=== PATIENT | male | born 1935 | race African-American/Black ===

== ENCOUNTER 2020-02-12 21:19 | Inpatient (IN) | payer OTHER ==
[~2020-02-12] VITALS: Ht 170.2 cm; Wt 59.6 kg
--- NOTE | ~2020-02-12 | EEG ---
[facility] Jaison [place] [address] ELECTROENCEPHALOGRAM Name: MANJIT SMITH Room #: 206-P [facility] IN M.R.#: [id number] Admission: 02/12/20 Attend Phys: Solo Diaz MD Discharge: Date of : 37 Report #: [id number] THIS REPORT FOR: //name// CC: FAM unknown Solo Diaz DATE OF SERVICE: 02/19/2020 REFERRING PHYSICIAN: Dr. Diaz. This patient is being evaluated for possibility of stroke. The patient's background activity is about 7 Hz and 30 microvolt. It is a poorly formed background activity. The patient went to sleep that is associated with bilateral slowing and vertex sharp waves. Photic stimulation is unremarkable. Throughout the record, no active epileptiform activity was noticed. IMPRESSION: This patient's EEG is intermixed with some theta range slowing. However, no active epileptiform activity was noticed during this record. Thank you very much for this referral. By: 26 31 Franki Hui MD /nt
--- NOTE | ~2020-02-12 | HC ---
[facility] [place] [address] CONSULTATION Name: MANJIT SMITH Room #: 206-P ADM IN M.R.#: [id number] Admission: 02/12/20 Attend Phys: Solo Diaz MD Discharge: Date of : 37 Report #: [id number] THIS REPORT FOR: cc: FAM - Family physician unknown FAM - Family physician unknown Franki Hui MD ~ DATE OF SERVICE: 02/19/2020 HISTORY OF PRESENT ILLNESS: This is an 84-year-old male patient who is unable to provide any history at all. I talked to the nurses looking after this patient and I talked to the patient's daughter. I will give a call to Dr. Jarrett and will talk to her. The patient lives by himself. 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 Daughter does not know which eye. He has very minimum vision in the other eye. That is his baseline. He needs the family health to do day-to-day activities. He cannot cook for himself. Family goes and help him or he gets Meals on the Wheels. So, it looks like he has a pretty significant dementia in the baseline. He also has significant visual disturbances in the baseline, but he was able to talk, from the last few days, he does not make any sense. This is according to the family. He did not follow any commands for me. REVIEW OF SYSTEMS: Positive for gastric ulcer. His hemoglobin is only 6.9. His platelet count is only 99. Records indicate that he does have a GI problem. He also has respiratory difficulty. He has a history of atrial fibrillation. He has a history of electrolyte imbalances as well as renal problem. Records indicate that he had elevated transaminase. A 14-point review of system was carried out and this was his relevant 14-point review of systems. Apparently, he did not have a stroke in the past. PAST MEDICAL HISTORY: Positive for dementia. FAMILY HISTORY: Negative for early age stroke. SOCIAL HISTORY: Has been described above. PHYSICAL EXAMINATION: Indicates that he wakes up, he makes some sounds. He does not make any sense. I cannot understand a single word he says. Cranial nerve examination 2-12 was attempted. It is very difficult. He does have a visual deficit, but according to the daughter that is his baseline. It looks like he can move all 4 extremities, but he does not cooperate with the position sense. He keeps his arm in very unusual position. I could not reveal sensory or reflex. There is no meningeal sign. There is no carotid bruit in this patient. His last CHS was 5.2. Blood pressure is 116/57, pulse is 60, [facility] [address] [place] [address] CONSULTATION Name: MANJIT SMITH Room #: 206-P [facility] IN M.R.#: [id number] Admission: 02/12/20 Attend Phys: Solo Diaz MD Discharge: Date of : 37 Report #: [id number] temperature is 98.4. IMPRESSION: I discussed with the patient's daughter. She says he does not drink or smoke, but some of the history is conflicting, so I will give him a little thiamine. I need to do an MRI to make sure there is no vascular event. I will also get an EEG done. He does have visual disturbances, but looks like that is his baseline, and for that, I will check a sed rate, but I will suggest Ophthalmology consult. I do not know how to arrange that because there is no medicaid biller who comes here. All of it was discussed with the patient who does not understand things as well as the family. More than 15 minutes of time was spent taking care of this patient today and majority of time was spent counseling and coordinating. By: 1230 21 Franki Hui MD /nt
--- NOTE | ~2020-02-12 | EMS ---
[address] [address] EMS Patient Care Report Name: MANJIT SMITH Room #: 209-P ADM IN M.R.#: [id number] Admission: 02/12/20 Attend Phys: Bernice Baker Discharge: Date of : 37 Report #: [id number] THIS REPORT FOR: //name// Report Transmitted: 02/13/2020 05:51 EMS Care Summary [place], [place]/[facility] Incident [id number] @ 02/12/2020 20:32 Incident Location [address] [place] [address] Patient MANJIT SMITH Male, 84 Years 1935 Patient Address Patient History Hypertension (HTN), Patient Allergies No known allergies, Patient Medications Lisinopril, Carvedilol, Chief Complaint ABD PAIN Disposition Transported No Lights/[place] Dispatch Reason Abdominal Pain/Problems Transported To [facility] Narrative PT FOUND IN HOME STANDING AND AMBULATING WITHOUT DISTRESS. PT IS AAOX4 GCS 15 AND INITIALLY COMPLAINING OF ABDOMINAL PAIN. PT HAS HISTORY OF DEMENTIA AND HYPERTENSION. PT FIANCE STATES THAT SHE WANTS HIM TO GO TO THE HOSPITAL BUT PT DOES NOT WANT TO GO. PT IS CONSENTING TO TREATMENT AT THIS POINT. PT SITS IN CHAIR FOR ASSESSMENT. VITALS REVEAL MILD HYPERTENSION AND SINUS TACHYCARDIA VIA [address] [address] EMS Patient Care Report Name: MANJIT SMITH Room #: 209-P ADM IN M.R.#: [id number] Admission: 02/12/20 Attend Phys: Bernice Baker Discharge: Date of : 37 Report #: [id number] 12 LEAD. PT HAS NO COMPLAINTS OF NAUSEA, SOA, HEADACHE, DIZZINESS, OR LIGHTHEADEDNESS. PT STATES THAT HE NO LONGER HAS ABDOMINAL PAIN AND IS NOW CONSENTING TO TRANSPORT WITH [facility]. PT WALKS SELF TO STRETCHER AND IS LOADED TO AMBULANCE WITHOUT INCIDENT. TRANSPORT INITIATED. PT REMAINS CALM AND COLLECTED ENROUTE TO HOSPITAL. PT VITALS AND MENTAL STATUS CONTINUOUSLY MONITORED EN ROUTE TO HOSPITAL WITH NO ABNORMALITIES. VAGAL MANEUCER ATTEMPTED WITHOUT SUCCESS. ARRIVAL AT HOSPITAL. PT IS MOVED FROM AMBULANCE AND INTO HOSPITAL ROOM AND ONTO BED WITHOUT INCIDENT. PT REPORT AND CARE SUCCESSFULLY TRANSFERRED TO [facility]. Initial Vitals @21:05P: 150,R: 18,BP: 137/94,Pain: 0/10,GCS: 15,SpO2: 94,Revised Trauma: 12,MA Suspected: false @20:53P: 130,R: 18,BP: 143/94,Pain: 0/10,GCS: 15,Glucose: 109,SpO2: 94,Revised Trauma: 12,MA Suspected: false Assessments @20:53MENTAL:Other,Person Oriented,Place Oriented,Time Oriented,Event Oriented,SKIN:HEENT:Head/Face: No Abnormalities,Neck/Airway: No Abnormalities,LUNG SOUNDS:General: No Abnormalities,Left Upper: No Abnormalities,Right Upper: No Abnormalities,Left Lower: No Abnormalities,Right Lower: No Abnormalities,ABDOMEN:General: No Abnormalities,Left Upper: No Abnormalities,Right Upper: No Abnormalities,Left Lower: No Abnormalities,Right Lower: No Abnormalities,PELVIS//GI:No Abnormalities,EXTREMITIES:Capillary Refill: Right Upper: < 2 Sec,Left Arm: No Abnormalities,Right Arm: No Abnormalities,Left Leg: No Abnormalities,Right Leg: No Abnormalities,PULSE:Radial: 2+ Normal,NEURO:No Abnormalities, Impression Cardiac arrhythmia/dysrhythmia Procedures @20:59StretcherResponse: Unchanged@20:52ALS AssessmentResponse: UnchangedSucceeded@20:5612-Lead ECGResponse: UnchangedSucceeded@21:05Normal Saline (.9% NaCl) 10cc (18 ga) Site: Antecubital-RightResponse: UnchangedSucceeded@21:09Response: UnchangedFailed Timeline 20:27,Call Received 20:27,Dispatch Notified 20:32,Dispatched 20:32,En Route 20:50,On Scene 20:52,At Patient 20:52,ALS Assessment,Response: UnchangedSucceeded, 20:53,BP: 143/94 M,PULSE: 130,RR: 18 R,SPO2: 94 Ox,ETCO2: ,B,PAIN: [facility] [address] [place] [address] EMS Patient Care Report Name: MANJIT SMITH Room #: 209-P ADM IN M.R.#: [id number] Admission: 02/12/20 Attend Phys: Bernice Baker Discharge: Date of : 37 Report #: [id number],GCS: 15, 20:56,12-Lead ECG,Response: UnchangedSucceeded, 20:59,Stretcher,Response: Unchanged 21:05,Normal Saline (.9% NaCl) 10cc 18 ga Site: Antecubital-Right,Response: UnchangedSucceeded, 21:05,BP: 137/94 M,PULSE: 150,RR: 18 R,SPO2: 94 Ox,ETCO2: ,BG: ,PAIN: 0,GCS: 15, 21:08,Depart Scene 21:09,Response: UnchangedFailed, 21:17,At Destination 21:32,Call Closed Disclaimer v1.1 Copyright 2020 [employer] This EMS Care Summary contains data elements from the applicable legal record (which may be displayed differently). It is designed to provide pertinent information for the following purposes: continuity of care, clinical quality, and state data reporting. The complete legal record is available to ED staff and administrators of the receiving hospital in [employer] Patient Tracker. All data is provided "as is."
[2020-02-12 21:27] VITALS: BP 117/89
[2020-02-12 21:57] LABS: ABSOLUTE NEUTROPHILS 2.7 thou/uL (1.4-8.2); BASOPHILS 0.5 % (0.0-2.0); HEMATOCRIT 41.4 % (42.0-52.0); HEMOGLOBIN 13.8 gm/dL (14.0-18.0); LYMPHOCYTES 39.2 % (24.0-44.0); MCH 27.5 pg (26.0-34.0); MCHC 33.3 g/dL (28.0-37.0); MCV 82.6 fL (80.0-100.0); MONOCYTES 10.9 % (1.0-8.0); PLATELET COUNT 155 thou/uL (150-400); POLYS 48.4 % (36.0-66.0); RBC 5.02 mil/uL (4.50-6.00); RDW 15.7 % (10.5-14.5); WBC 5.5 thou/uL (4.0-11.0)
[2020-02-12 22:25] LABS: CALCIUM 8.9 mg/dL (8.5-10.1); CREATININE 1.6 mg/dL (0.7-1.3); POTASSIUM 4.2 mmol/L (3.5-5.1)
[2020-02-12 22:35] LABS: ALBUMIN 3.3 g/dL (3.4-5.0); TOTAL BILIRUBIN 0.7 mg/dL (0.2-1.0); TOTAL PROTEIN 6.4 g/dL (6.4-8.2); TROPONIN-I 0.1 ng/mL (<0.06)
[2020-02-13] VITALS (7 sets, daily range): BP systolic 100–134; BP diastolic 60–82
--- NOTE | 2020-02-13 02:11 | NUR ---
HANDOFF REPORT SEND TO CCU
[2020-02-13 02:19] LABS: BE(vivo) -10.2 mmol/L (-2 to +3); HCO3 16.7 mmol/L (22.0-26.0); PCO2 40.4 mmHg (35.0-45.0); PO2 83.5 mmHg (80.0-100.0); sO2 94.5 % (92.0-98.0)
[2020-02-13 02:20] LABS: pH 7.235 (7.360-7.450)
[2020-02-13 04:17] LABS: CALCIUM 8.8 mg/dL (8.5-10.1); CREATININE 1.9 mg/dL (0.7-1.3)
[2020-02-13 04:22] LABS: POTASSIUM 5.3 mmol/L (3.5-5.1)
--- NOTE | 2020-02-13 05:06 | NUR ---
pt admitted to room 209, pt is awake, alert and oriented to person and place, afib on the monitor, hr in the 50s, bp stable, assessments as charted, limited due to pts dementia, lasix given as ordered, pt off cardizem due to bradycardia, pt is tachypnic, pt put on bipap, attempted to but the johnson catheter but unsuccessful, will continue to monitor
--- NOTE | 2020-02-13 09:40 | EKG ---
[facility] [place] [address] ELECTROCARDIOGRAM REPORT Name: MANJIT SMITH Room #: 209-P ADM IN M.R.#: [id number] Admission: 02/12/20 Attend Phys: Bernice Baker Discharge: Date of : 37 Report #: [id number] THIS REPORT FOR: cc: FAM - Family physician unknown FAM - Family physician unknown Colton Patricia MD ~ THIS REPORT FOR: //name// [facility] ED Test Date: 2020-02-12 Test Time: 21:38:56 Pat Name: MANJIT SMITH Department: Room: [facility] Gender: M Asp Web Developer: janna : 1935 Requested By: Fly Rebolledo Order Number: [id number] MD: Colton Patricia Measurements Intervals [place] Rate: 150 P: 129 [place]: 44 QRS: -37 QRSD: 110 T: 146 QT: 326 QTc: 515 Interpretive Statements Supraventricular tachycardia LVH with secondary repolarization abnormality No previous ECG available for comparison Electronically Signed On 02-13-2020 9:39:53 CDT by Colton Patricia [email or web address] <ELECTRONICALLY SIGNED> By: [place] [id number] [id number] 37 Colton Patricia MD /JON
--- NOTE | 2020-02-13 09:42 | EKG ---
[facility] [place] [address] ELECTROCARDIOGRAM REPORT Name: MANJIT SMITH Room #: 209-P ADM IN M.R.#: [id number] Admission: 02/12/20 Attend Phys: Bernice Baker Discharge: Date of : 37 Report #: [id number] THIS REPORT FOR: cc: FAM - Family physician unknown FAM - Family physician unknown Colton Patricia MD ~ THIS REPORT FOR: //name// [facility] Test Date: 2020-02-13 Test Time: 07:56:56 Pat Name: MANJIT SMITH Department: Room: [facility] Gender: M Search Strategist: Adrian HENRIQUEZ : 1935 Requested By: Sarah Rodriguez Order Number: [id number] MD: Colton Patricia Measurements Intervals [place] Rate: 57 P: AR: QRS: -32 QRSD: 118 T: 154 QT: 489 QTc: 477 Interpretive Statements Junctional rhythm Nonspecific intraventricular conduction delay Inferior infarct, old Abnrm T, consider ischemia, anterolateral lds Compared to ECG 02/12/2020 21:38:56 Electronically Signed On 02-13-2020 9:42:36 CDT by Colton Patricia [email or web address] <ELECTRONICALLY SIGNED> By: Colton Patricia MD 02/13/20 0942 [id number] Colton Patricia MD /EPI
--- NOTE | 2020-02-13 09:42 | EKG ---
[facility] [address] [place] [address] ELECTROCARDIOGRAM REPORT Name: MANJIT SMITH Room #: 209-P ADM IN M.R.#: [id number] Admission: 02/12/20 Attend Phys: Bernice Baker Discharge: Date of : 37 Report #: [id number] THIS REPORT FOR: cc: FAM - Family physician unknown FAM - Family physician unknown Colton Patricia MD ~ THIS REPORT FOR: //name// [facility] ED Test Date: 2020-02-12 Test Time: 23:59:24 Pat Name: MANJIT SMITH Department: Room: [facility] Gender: M Geometry Teacher: dg : 1935 Requested By: Fly Rebolledo Order Number: [id number] MD: Colton Patricia Measurements Intervals [place] Rate: 75 P: 0 NV: 67 QRS: -31 QRSD: 112 T: 150 QT: 427 QTc: 477 Interpretive Statements Possible underlying atrial fibrillation. lvh SUPRAVENTRICULAR TACHYCARDIA terminated Electronically Signed On 02-13-2020 9:41:49 CDT by Colton Patricia [email or web address] <ELECTRONICALLY SIGNED> By: Colton Patricia MD 02/13/20 0941 58 58 Colton Patricia MD /JON
[2020-02-13 11:27] LABS: INR 1.3; PROTIME 13.5 Seconds (9.3-11.4)
--- NOTE | 2020-02-13 11:29 | 2DMMODE ---
[facility] [address] [place] [address] 2 D/M-MODE ECHOCARDIOGRAM Name: MANJIT SMITH Room #: 209-P ADM IN M.R.#: [id number] Admission: 02/12/20 Attend Phys: Bernice Baker Discharge: Date of : 37 Report #: [id number] THIS REPORT FOR: cc: FAM - Family physician unknown FAM - Family physician unknown Colton Patricia MD ~ APPROVED REPORT Study performed: 02/13/2020 08:27:46 EXAM: Comprehensive 2D, Doppler, and color-flow Echocardiogram Patient Location: Bedside Room #: 209 Status: on-call BSA: 1.82 HR: 55 bpm BP: 144/64 mmHg Rhythm: Atrial Fibrillation Other Information Study Quality: Adequate Technically limited study due to uncooperative patient/dementia and unable to position patient. Indications Afib with RVR, elevated BNP 2D Dimensions RVDd: 33.67 mm IVSd: 13.86 (7-11mm) LVOT Diam: 19.86 (18-24mm) LVDd: 46.28 mm PWd: 14.08 (7-11mm) Ascending Ao: 31.19 (22-36mm) LVDs: 42.07 (25-40mm) Aortic Root: 32.66 mm IVC: 22.00 mm Volumes Left Atrial Volume (Systole) Single Plane 4CH: 82.67 mL Single Plane 2CH: 70.56 mL LA ESV Index: 40.00 mL/m2 Aortic Valve AoV Peak Dami.: 0.85 m/s AO Peak Gr.: 2.91 mmHg LVOT Max P.36 mmHg LVOT Max V: 0.58 m/s [facility] [address] [place] [address] 2 D/M-MODE ECHOCARDIOGRAM Name: MANJIT SMITH Room #: 209-P [facility] IN M.R.#: [id number] Admission: 02/12/20 Attend Phys: Bernice Fox Jun Discharge: Date of : 37 Report #: [id number] NIRMALA Vmax: 2.12 cm2 AI Vmax: 2.83 m/s AI [place]: 1.21 m/s2 AI PHT: 680.04 ms Mitral Valve MV Decel. Time: 240.16 ms MV E Max Dami.: 0.84 m/s Pulmonary Valve PV Peak Dami.: 0.47 m/s PV Peak Gr.: 0.89 mmHg Tricuspid Valve TR Peak Dami.: 3.34 m/s TR Peak Gr.: 44.52 mmHg Left Ventricle The left ventricle is normal size. Regional wall motion abnormalities are noted in the lateral and anterolateral almazan. Moderate concentric left ventricular hypertrophy. Left ventricular systolic function is moderately decreased. LVEF is 35-40%. This study is not technically sufficient to allow evaluation of the LV diastolic function due to atrial fibrillation. Right Ventricle The right ventricle is normal size. Right ventricle is moderately hypokinetic. Atria Left atrium is mildly to moderately dilated. Right atrium is mildly dilated. Aortic Valve The aortic valve is not well visualized. Mild aortic regurgitation. There is no aortic valvular stenosis. Mitral Valve The mitral valve is normal in structure. Severe mitral regurgitation. No evidence of mitral valve stenosis. Tricuspid Valve The tricuspid valve is normal in structure. Severe tricuspid regurgitation. PAP is estimated at 55-60 mmHg. Pulmonic Valve The pulmonary valve is normal in structure. There is no pulmonic [facility] [place] [address] 2 D/M-MODE ECHOCARDIOGRAM Name: LUISMANJIT Room #: 209-P ADM IN M.R.#: [id number] Admission: 02/12/20 Attend Phys: Bernice Wagner Discharge: Date of : 37 Report #: [id number] valvular regurgitation. Great Vessels The aortic root is normal in size. The IVC is mildly dilated. Unable to assess inspiratory collapse. Pericardium There is no pericardial effusion. <Conclusion> The left ventricle is normal size. LVEF is 35-40%. Regional wall motion abnormalities are noted in the lateral and anterolateral almazan. The right ventricle is normal size. Right ventricle is moderately hypokinetic. Mild aortic regurgitation. There is no aortic valvular stenosis. Severe mitral regurgitation. No evidence of mitral valve stenosis. The tricuspid valve is normal in structure. Severe tricuspid regurgitation. PAP is estimated at 55-60 mmHg. The IVC is mildly dilated. Unable to assess inspiratory collapse. There is no pericardial effusion. <ELECTRONICALLY SIGNED> By: Colton Patricia MD 02/13/209 28 28 Colton Patricia MD /INF
--- NOTE | 2020-02-13 15:01 | NUR ---
MOVED FROM 209 TO 216 TO BETTER MONITOR BIPAP. MULTIPLE CALLS FROM FAMILY. POA IS ADULT DTR MIGUEL ÁNGEL CEVALLOS, NAE [phone]. JUNCTIONAL RHYTHM PER TELE. HE MOSTLY SLEEPS BUT WAKES READILY TO REPOND TO QUESTIONS. COVID TEST PERFORMED. FALL PRECAUTIONS IN PLACE, CLOSE TO NURSES' STATION. TROPONINS NOTED. WILL CONTINUE TO FOLLOW CLOSELY.
[2020-02-13 23:19] LABS: CALCIUM 8.4 mg/dL (8.5-10.1); CREATININE 2.8 mg/dL (0.7-1.3); POTASSIUM 4.7 mmol/L (3.5-5.1)
[2020-02-14] VITALS (51 sets, daily range): BP systolic 97–126; BP diastolic 44–70
[2020-02-14 05:17] LABS: BE(vivo) -2.3 mmol/L (-2 to +3); PCO2 30.6 mmHg (35.0-45.0); PO2 132.4 mmHg (80.0-100.0); pH 7.454 (7.360-7.450); sO2 98.8 % (92.0-98.0)
[2020-02-14 05:59] LABS: ABSOLUTE NEUTROPHILS 8.6 thou/uL (1.4-8.2); BASOPHILS 0.2 % (0.0-2.0); LYMPHOCYTES 12.1 % (24.0-44.0); MCH 27.8 pg (26.0-34.0); MCHC 33.8 g/dL (28.0-37.0); MCV 82.3 fL (80.0-100.0); PLATELET COUNT 90 thou/uL (150-400); POLYS 81.7 % (36.0-66.0); RBC 3.28 mil/uL (4.50-6.00); RDW 15.8 % (10.5-14.5); WBC 10.6 thou/uL (4.0-11.0)
[2020-02-14 06:06] LABS: HEMOGLOBIN 9.1 gm/dL (14.0-18.0)
--- NOTE | 2020-02-14 06:07 | NUR ---
CALL DR CRYSTAL CHAVES ABOUT D-DIMER GREATER THAN 20. NO ORDERS GIVEN. HEMOGLOBIN 9.1.
[2020-02-14 06:31] LABS: ALBUMIN 2.2 g/dL (3.4-5.0); CALCIUM 7.7 mg/dL (8.5-10.1); CREATININE 2.7 mg/dL (0.7-1.3); POTASSIUM 5.3 mmol/L (3.5-5.1); TOTAL PROTEIN 4.5 g/dL (6.4-8.2)
--- NOTE | 2020-02-14 07:06 | NUR ---
PATIENT UP TO [facility] AND HAD A LARGE BRIGHT BLOODY STOOL. DR CALLED AT 0500 ABOUT HIS HEMOGLOBIN, NO NEW ORDERS.
--- NOTE | 2020-02-14 07:07 | NUR ---
DR Pablo CHAVES CALLED AT 0600 ABOUT HEMOGLOBIN RESULTS NO NEW ORDERS.
[2020-02-14 08:04] LABS: HEMATOCRIT 25.3 % (42.0-52.0); HEMOGLOBIN 8.4 gm/dL (14.0-18.0)
[2020-02-14 09:50] LABS: HEMATOCRIT 22.5 % (42.0-52.0); HEMOGLOBIN 7.5 gm/dL (14.0-18.0)
--- NOTE | 2020-02-14 18:10 | NUR ---
PRBC'S well tolerated, no further bleeding. daughter Suzanne Mcintyre present, updated on pt status. slowly progressing.
--- NOTE | 2020-02-14 18:15 | NUR ---
Patient in room 216 this am. Patient had alrge bloody stool at shift change. Blood pressure 100/62. Patient wakes and continues to have adequate oxygenation on 4L O2 NC. Ordered stat H/H. Hgb 8.4 down from 12/21 at 0400 0830- Patient up to [facility] with TEA TASTER at bedside had another large bloody stool. Pt back to bed, lethargic, bp 78/38. Rapid response team called. Saline bolus given wide open. Patient placed in reverse trendelenburg. Pressure slowly increased to the 90's low 100's. another stat H/H done. Type and cross with 1 unit packed cells ordered. Hgb 7.5 Heart rhythm stable. Patient transfered to ICU room 245.
[2020-02-14 19:42] LABS: HEMATOCRIT 26.2 % (42.0-52.0); HEMOGLOBIN 8.6 gm/dL (14.0-18.0)
[2020-02-15] VITALS (55 sets, daily range): BP systolic 100–156; BP diastolic 47–78
[2020-02-15 00:41] LABS: HEMATOCRIT 23.2 % (42.0-52.0); HEMOGLOBIN 7.7 gm/dL (14.0-18.0)
--- NOTE | 2020-02-15 01:37 | NUR ---
ASSUMED PT CARE AT 1900. VSS. PT A&0X4. PT RESTING IN BED. PT HAD A 5 BEAT RUN OF VTACH AROUND 1AM THIS AM, PT REMIANS ASYMPTOMATIC. PT HAD 3 LARGE BLOODY STOOLS BEFORE MIDNIGHT THIS SHIFT, RN NOTICED PROTONIX GTT ON JUN WAS D/C. [place] ROJAS NOTIFED, ORDERS RECIEVED FOR STAT H&H AND FOLLOW UP CBC AND BMP IN THE AM, ALSO GOT A RENEWAL ORDER FOR THE PTOTONIX GTT. PT IS STABLE FOR NOW, WILL CONTINUE TO CLOSELY MONITOR
[2020-02-15 04:59] LABS: CALCIUM 7.5 mg/dL (8.5-10.1); CREATININE 1.8 mg/dL (0.7-1.3); HEMATOCRIT 23.5 % (42.0-52.0); HEMOGLOBIN 7.6 gm/dL (14.0-18.0); MCH 26.6 pg (26.0-34.0); MCHC 32.3 g/dL (28.0-37.0); MCV 82.5 fL (80.0-100.0); POTASSIUM 5.1 mmol/L (3.5-5.1); RBC 2.85 mil/uL (4.50-6.00); RDW 16.2 % (10.5-14.5); WBC 11.1 thou/uL (4.0-11.0)
--- NOTE | 2020-02-15 08:44 | NUR ---
Pt TRANSFERRED TO ICU. WILL NEED NEW PT ORDER PRIOR TO PT EVALUATION ONCE Pt MEDICALLY APPROPRIATE FOR PT.
[2020-02-15 09:19] LABS: ALBUMIN 2.2 g/dL (3.4-5.0); DIRECT BILIRUBIN 0.4 mg/dL (<0.1-0.2); TOTAL BILIRUBIN 0.8 mg/dL (0.2-1.0)
--- NOTE | 2020-02-15 10:15 | NUR ---
daughter/dpoa informed of EGD today and risks/benefits. telephone consent obtained. pt informed of procedure and verbally agreeable. report to GI rn. pt transferred to GI lab with awake overnight monitor per icu bed. Dr. Diaz rounded just after pt transferred for procedure.
--- NOTE | 2020-02-15 13:10 | NUR ---
PER BAR NOTE PTS INSURANCE IS OUT OF NETWORK. KOBE CONTACTED INSURANCE IN ATTEMPTS TO SEE WHO IS IN-NETWORK THAT PT CAN BE TRANSFERED TO. KOBE SPOKE WITH KYLAH Jenkins REF#[id number] WHO REPORTED THAT [facility] IS IN NETWORK. KOBE NOTIFIED SW.
--- NOTE | 2020-02-15 15:50 | NUR ---
INITIAL ASSESSMENT: SHAHZAD notified that pt's insurance is out of network with [facility]. SHAHZAD reviewed chart and spoke with nursing and attending physician. Pt was admitted from home due to a flutter with RVR. Pt was transferred to ICU from and had EGD earlier today. SHAHZAD discussed with UR RN, who contacted pt's insurance. [facility] are in network. SHAHZAD spoke with pt's dtr, Suzanne, via phone. Introduced role of SW. Pt's dtr states pt is normally alert/orientated and independent with ADLs. No use of DME. Pt has used HH in the past, but unable to recall name of provider. No hx of post-acute care. Pt's PCP is Dr. Saturnino Adair. Pt's dtr states she was unaware that [facility] was not in-network. SHAHZAD explained that [facility] is in-network. Pt's dtr is agreeable with initiating transfer process and would prefer [facility] due to location. SHAHZAD placed call to [facility] Transfer Center and spoke with Marcela. Clinical info and attending physician info provided. SHAHZAD faxed face sheet and insurance cards to [facility] for review. Awaiting call back at this time. [employer] and [employer] forms faxed to nurses station to place on chart, should pt be ready to transfer later today. SHAHZAD spoke with Michelle in radiology who will have radiology images uploaded to the [facility] and will fax the reports to the transfer center. SHAHZAD is following to assist as needed with discharge planning.
[2020-02-15 16:03] LABS: HEMATOCRIT 23.5 % (42.0-52.0); HEMOGLOBIN 7.8 gm/dL (14.0-18.0)
[2020-02-15 18:06] LABS: HAV IgM AB (ANTI-HAV IgM) Negative (Negative); HEPATITIS B SURFACE AG Negative (Negative); HEPATITIS C VIRUS AB <0.1 (0.0-0.9)
--- NOTE | 2020-02-15 18:30 | NUR ---
resting comfortably, two stools this afternoon, one large and one smear both dark loose stools. transfer to [facility] pending - bed unavailable.
[2020-02-16] VITALS (24 sets, daily range): BP systolic 106–164; BP diastolic 52–92
--- NOTE | 2020-02-16 02:27 | NUR ---
0110 6 BEAT RUN OF VTACH 0137 7 BEAT RUN OF VTACH 0223 7 BEAT RUN OF VTACH
[2020-02-16 05:54] LABS: HEMATOCRIT 24.1 % (42.0-52.0); MCH 26.9 pg (26.0-34.0); MCHC 33.2 g/dL (28.0-37.0); MCV 81.2 fL (80.0-100.0); RBC 2.97 mil/uL (4.50-6.00); RDW 16.8 % (10.5-14.5); WBC 11.5 thou/uL (4.0-11.0)
[2020-02-16 06:05] LABS: INR 1.3; PROTIME 13.4 Seconds (9.3-11.4)
[2020-02-16 06:10] LABS: CALCIUM 8.2 mg/dL (8.5-10.1); CREATININE 1.2 mg/dL (0.7-1.3); POTASSIUM 4.5 mmol/L (3.5-5.1)
--- NOTE | 2020-02-16 07:52 | NUR ---
PT HAD ONE SMALL BM THIS SHIFT. BLACK LIQUID. PT INCONTINENT OF B/B. VSS. 3 RUNS OF VTACH THIS SHIFT. SR ON MONITOR. MAINTAINED SATS ON ROOM AIR. SPOKE WITH [facility] TRANSFER TEAM VIA PHONE TO GIVE UPDATE. POSSIBLE ROOM AVAILABLE LATER TODAY; THEY WILL CALL BACK LATER. SPOKE WITH DAUGHTER MIGUEL ÁNGEL VIA PHONE AND DISCUSSED PT'S STATUS.
--- NOTE | 2020-02-16 11:04 | NUR ---
DR. CONTRERAS SPOKE WITH SON CONFIRMING PT DOES NOT MEET LIVER TRANSPLANT CRITERIA. DR. COLON PRESENT, UPDATED REGARDING 3 PRESSORS MAXED, DARK BROWN UOP-15CC. DR. BARDALES PRESENT PER DR. COLON'S REQUEST. DR. BARDALES SPOKE WITH SON. COMFORT CARE ORDERS INITIATED. VASOPRESSIN AND EPI BOTH DC'D AT 1015. LEVOPHED COMPLETELY TITRATED OFF AT THIS TIME. JOURDAN WHEN SPEAKING WITH STAFF REQUESTED TO SEE SAMANTHA AGAIN. SAMANTHA ALAN PRESENT PROVIDING SUPPORT.
--- NOTE | 2020-02-16 13:47 | NUR ---
SW reviewed chart and spoke with nursing and attending physician. Pt remains in ICU. SW placed call to [facility] Transfer Center and spoke with Moises, who states they are still waiting for a bed at [facility]. [facility] will notify SW or ICU when a bed is available. SHAHZAD spoke with pt's dtr, Suzanne, via phone to provide update. Suzanne is aware and agreeable with plan. Chart has been copied. [facility] ambulance form and [employer] transfer form is on pt's chart. SHAHZAD is following to assist as needed with discharge planning.
[2020-02-16 14:26] LABS: ALBUMIN 2.8 g/dL (3.4-5.0); DIRECT BILIRUBIN 0.5 mg/dL (<0.1-0.2); TOTAL PROTEIN 5.2 g/dL (6.4-8.2)
[2020-02-16 15:07] LABS: MITOCHONDRIAL ANTIBODY <20.0 Units (0.0-20.0); SMOOTH MUSCLE ANTIBODY 7 Units (0-19)
--- NOTE | 2020-02-16 18:45 | NUR ---
CONDOM CATH PLACED FOR INCONTINENCE. SOFT DIET WELL TOLERATED, THEN HE HAD ONE LOOSE BLACK STOOL. NO ACTIVE BLEEDING. SR, ROOM AIR. RELATED TO PT'S INSURANCE, HE CONTINUES TO BE A CANDIDATE TO TRANSFER TO [facility]. BED UNAVAILABLE.
--- NOTE | 2020-02-16 22:55 | NUR ---
SPOKE TO LINDSAY AT [facility] TO ALERT HER TO PATIENT BEING DOWNGRADED TO CCT STATUS. REPORT WITH RECENT VITAL SIGNS RELAYED.
[2020-02-16 23:53] LABS: HEMATOCRIT 22.8 % (42.0-52.0); HEMOGLOBIN 7.6 gm/dL (14.0-18.0); MCH 27.1 pg (26.0-34.0); MCHC 33.2 g/dL (28.0-37.0); MCV 81.7 fL (80.0-100.0); RBC 2.79 mil/uL (4.50-6.00); RDW 16.5 % (10.5-14.5); WBC 8.7 thou/uL (4.0-11.0)
[2020-02-17] VITALS (11 sets, daily range): BP systolic 110–139; BP diastolic 47–70
[2020-02-17 00:15] LABS: CALCIUM 7.9 mg/dL (8.5-10.1); CREATININE 1.5 mg/dL (0.7-1.3)
--- NOTE | 2020-02-17 00:32 | NUR ---
PROVIDER MADE AWARE OF 34 BEAT RUN OF VTACH. PATIENT ASSYMPTOMATIC. NURSE INSTRUCTED TO CONTINUE TO MONITOR.
--- NOTE | 2020-02-17 03:29 | NUR ---
ASSUMED PATIENT CARE AT 1845. VITAL SIGNS STABLE WITH PATIENT HAVING NO COMPLAINTS OF PAIN OR NAUSEA. ORIENTED TIMES TWO TO THREE, PATIENT IS PLEASANTLY CONFUSED AND NOT IMPULSIVE. BREATHING STABLE EVIDENCED BY ASSESSMENTS AND CONTINUOUS SATURATION MONITORING. PATIENT STATUS DOWNGRADED TO CCT WITH CALL PLACED TO [facility] WITH REPORT GIVEN. PATIENT DID HAVE AN EXTENSIVE RUN OF VTACH DURING SHIFT. NURSING HOME PHYSICIAN INFORMED OF SITUATION WITH NURSE INSTRUCTED TO CONTINUE TO MONITOR. CONTINUE PLAN OF CARE.
[2020-02-17 05:05] LABS: CREATININE 1.3 mg/dL (0.7-1.3); POTASSIUM 3.8 mmol/L (3.5-5.1)
[2020-02-17 05:24] LABS: HEMOGLOBIN 7.2 gm/dL (14.0-18.0); WBC 9.3 thou/uL (4.0-11.0)
[2020-02-17 05:26] LABS: HEMATOCRIT 21.7 % (42.0-52.0); MCH 27.3 pg (26.0-34.0); MCHC 33.4 g/dL (28.0-37.0); MCV 81.8 fL (80.0-100.0); RBC 2.65 mil/uL (4.50-6.00); RDW 16.6 % (10.5-14.5)
--- NOTE | 2020-02-17 06:40 | NUR ---
PATIENT TRANSFERRED TO ROOM 206 IN CCU. DETAILED REPORT GIVEN.
[2020-02-17 07:48] LABS: ALBUMIN 2.4 g/dL (3.4-5.0); TOTAL BILIRUBIN 0.9 mg/dL (0.2-1.0); TOTAL PROTEIN 4.9 g/dL (6.4-8.2)
[2020-02-17 08:03] LABS: INR 1.1; PROTIME 11.6 Seconds (9.3-11.4)
--- NOTE | 2020-02-17 09:18 | NUR ---
SHAHZAD reviewed chart. Pt transferred to CCU from ICU this morning. SHAHZAD placed call to [facility] Transfer [facility] at 0915 and spoke with Joanna. Pt is on their waiting list for a bed at [facility]. All other [facility] are also at capacity. SHAHZAD updated attending physician. SW is following to assist as needed with transfer due to pt's insurance being out of network with [facility].
--- NOTE | 2020-02-17 17:06 | PATH ---
[facility] [address] [address] PATHOLOGY RPT PROCEDURE Name: LUISMANJIT Room #: 206-P ADM IN M.R.#: [id number] Admission: 02/12/20 Date of : 39 Discharge: Report #: [id number] Path Case #: [id number] [facility] Accession Number: [id number] . 01 Material submitted: . PART A: small bowel - BIOPSY OF SMALL BOWEL R/O DUODENITIS PART B: stomach - RANDOM GASTRIC BIOPSY R/O H. PYLORI . 01 Clinician provided ICD-10: J69.0 J96.01 . 01 Clinical history: . ATRIAL FLUTTER WITH RVR, GI BLEED . 02 Diagnosis: A. Small bowel mucosa, small bowel to rule out duodenitis, endoscopic biopsy: - Mild focal active nonspecific duodenitis with focal fundic-type metaplasia. - Negative for villous blunting or increase in intraepithelial lymphocytes. . B. Gastric mucosa, random gastric to rule out H. pylori, endoscopic biopsy: - Helicobacter pylori induced moderate active gastritis. - Negative for intestinal metaplasia, atrophy or dysplasia. - Moderate number of Helicobacter pylori organisms present on the properly controlled immunohistochemical stain. . (IUV:auto tester; 02/17/2020) MBR 02/17/2020 1335 Local . 02 Electronically signed: . Pema Birmingham MD, Pathologist NPI- [id number] . 01 Gross description: . A. The specimen is received in formalin, labeled "Manjit Smith, BX of small bowel" and consists of multiple fragments of ji tissue measuring 1.1 x 0.4 x 0.3 cm in aggregate which are entirely submitted in A1. . B. The specimen is received in formalin, labeled "Manjit Smith, random gastritis BX" and consists of multiple fragments of ji tissue measuring 1.5 x 0.5 x 0.3 cm in aggregate which are entirely submitted in B1. (SDY; 02/16/2020) SYU/SYU 02/16/[address] [address] PATHOLOGY RPT PROCEDURE Name: MANJIT SMITH Room #: 206-P ADM IN M.R.#: [id number] Admission: 02/12/20 Date of : 39 Discharge: Report #: [id number] Path Case #: [id number] . 02 Pathologist provided ICD-10: K29.80, K29.60, B96.81 . 02 CPT . 323585, [id number], [id number] Specimen Comment: A courtesy copy of this report has been sent to [phone], [phone]- Specimen Comment: [id number] Specimen Comment: Report sent to / DR CAMILO Performed at: [address], [place] [id number] MD Efrain Mack MD Phone: [phone] Performed at: [address] [id number] MD Pema Birmingham MD Phone: [phone]
--- NOTE | 2020-02-17 17:32 | NUR ---
Patient out of network no beds at [facility]. Dr Diaz reports patient may be able to dc home in am.
--- NOTE | 2020-02-17 18:00 | NUR ---
Pt alert today and able to answer most basic orientation questions. Pt did have several episodes of tachycardia (See strips-Abberant SVT?). Not symptomatic. No stools or evidence of any blood loss today. Awaiting room at [facility] for transfer-see case mgr notes.
[2020-02-18 03:55] VITALS: BP 124/67
--- NOTE | 2020-02-18 05:07 | NUR ---
ASSUMED CARE AT 1900; ALERT TO SELF, SITUATION, AND PLACE/ CONFUSED AT TIMES; NO C/O PAIN, NAUSEA, OR VOMITING; SR/ST ON THE MONITOR; SLEPT QUIETLY THROUGHOUT MOST OF THE NIGHT; NONAMBULATING W/EXTERNAL MALE CATHETER IN PLACE; PLAN IS TO TRANSFER TO [facility] WHEN A BED BECOMES AVAILABLE; PATIENT PROGRESSING SLOWLY TOWARD POC AND DISCHARGE GOALS; WILL CONTINUE TO MONITOR
[2020-02-18 05:40] LABS: MCH 27.2 pg (26.0-34.0); RBC 2.56 mil/uL (4.50-6.00)
[2020-02-18 05:43] LABS: MCHC 33.2 g/dL (28.0-37.0); RDW 16.7 % (10.5-14.5); WBC 8.4 thou/uL (4.0-11.0)
[2020-02-18 05:47] LABS: CALCIUM 7.8 mg/dL (8.5-10.1); CREATININE 1.1 mg/dL (0.7-1.3); POTASSIUM 3.8 mmol/L (3.5-5.1)
[2020-02-18 09:00] VITALS: BP 133/57
[2020-02-18 11:30] VITALS: BP 106/45
[2020-02-18] MEDS ORDERED: AMOXICILLIN 50500 M1 PO (12:21)
[2020-02-18] MEDS ORDERED: CLARITHROMYCIN250 M2 PO (12:21)
[2020-02-18] MEDS ORDERED: COREG6.25 MG PO (12:22)
[2020-02-18] MEDS ORDERED: PROTONIX40 M2 PO (12:22)
[2020-02-18 15:00] VITALS: BP 123/85
--- NOTE | 2020-02-18 15:32 | NUR ---
DC home today held due to weakness and mental status changes. Stat CT negative for any acute changes. PT eval with snf recommendation due to weakness. OT eval pending. Pt lives alone in a sr apt complex and has some intermitent family support. His sister was recently at [facility] snf and dtr Suzanne would like to see if he can go there. She notes he does not manage his medication well therefore he even stoped taking his bp meds. She has a friend go over to help him with bathing and light housekeeping. He is normally able to get around his apt with no dme and does use a depends for some incontience. Pt appears borderline for being able to return to indep living situation. Dtr is agreeable to supervisor intermediates care placement if recommended. [place] a $600 spend down and would need to apply for medicaid for correction. Dc planning recommendations discussed with the pt at bedside. He was agreeable to snf/rehab and ok with me coordinating with his dtr Suzanne. He mumbles his works and at times is hard to understand. He was not able to have a complete discussion about his dc planning options. Options reviewed at length with dtr Suzanne via phone. She will be in later this evening to discuss with him. Referrals being faxed to [facility], [facility], [facility], and [facility] by the dc sr. merchandise planner. [facility] is their first choice. Will complete 124c and unit RN to order Covid test for snf placement. The attending updated. [facility] to submit for auth if they can accept and call the dtr.
--- NOTE | 2020-02-18 16:54 | NUR ---
FAXED REFERRAL TO [facility] RECEIVED CONFIRMATION AND LEFT MSG WITH FATOU IN ADM WILL F/U WITH HER IN THE AM. FAXED REFERRAL TO [facility] SPOKE WITH JEANNETTE IN ADM SHE RECEIVED REFERRAL WILL REVIEW. FAXED REFERRAL TO [facility] SPOKE WITH DYLLAN IN ADM THEY ARE NOT TAKING NEW ADMITS RIGHT NOW DUE TO COVID. [facility]CEIV[facility] CONFIRMATION WILL F/U WITH FACILITY IN THE AM.
--- NOTE | 2020-02-18 18:37 | NUR ---
ASSESSMENT CHARTED - MEDS PER JUN - PT WOULD NOT TAKE PO MEDS AT ATTEMPT DID FINALLY GET HIM TO TAKE THEM - PT MUMBLING NOT ABLE TO BE UNDERSTOOD - ON OCCASION GETS OUT A WORD OR TWO THAT IS INTELIGABLE. ATTEMPTED TO GET PATIENT OUT OF BED - MAX ASSIST OF 2 - CONSULT TO [facility] - DR CAMILO NOTIFIED AND PATIENT DISCHARGE PLACED ON HOLD AND SNF PLACEMENT TO BE FOUND. SPOKE MULTIPLE TIMES WITH LESLIE TODAY SHE STATED THAT PATIENT WALKED AND TLAKED AND TOOK CARE OF HIMSELF PRIOR TO COMING INTO HOSPITAL AND COULD NOT UNDERSTAND WHY HE WAS NOT ABLE TO TALK TO HER ON THE PHONE NOW - CT OF HEAD WAS COMPLETED THIS AM - WITH NO CHANGE NOTED FROM PREVIOUS SCAN. PT UP TO THE CHAIR ATE 100% OF DINNER REUIRED TO BE FEED. FEED SELF BREAKFAST AND LUCH WITH MOD INTAKE. PT INCONTINENT. NO CO'S AT HE PRESENT TIME.
[2020-02-18 19:30] VITALS: BP 132/36
--- NOTE | 2020-02-19 03:01 | NUR ---
ASSUMED CARE OF PATIENT AT 1900. PATIENT APPEARED DROWSY AT INITIAL ASSESSMENT. PATIENT UNABLE TO ANSWER ANY ORIENTATION QUESTIONS. PATIENT MUMBLING INCOHERENT WORDS AND NOT PARTICIPATING IN OWN CARES. ADMINISTERED HS MEDICATION AND PATIENT ATTEMPTED TO SPIT OUT. WHEN PATIENT WOULD TAKE MEDICATION, PATIENT POCKETED IN MOUTH. PATIENT DOES NOT APPEAR TO BE PROGRESSING TOWARDS CARE PLAN GOALS AT THIS TIME.
[2020-02-19 03:40] VITALS: BP 123/57
[2020-02-19 05:46] LABS: HEMATOCRIT 20.2 % (42.0-52.0); HEMOGLOBIN 6.9 gm/dL (14.0-18.0); MCH 27.7 pg (26.0-34.0); MCHC 34.2 g/dL (28.0-37.0); MCV 81.2 fL (80.0-100.0); RBC 2.49 mil/uL (4.50-6.00); RDW 16.1 % (10.5-14.5); WBC 8.9 thou/uL (4.0-11.0)
[2020-02-19 05:54] LABS: CALCIUM 7.8 mg/dL (8.5-10.1); CREATININE 1.1 mg/dL (0.7-1.3); POTASSIUM 3.9 mmol/L (3.5-5.1)
[2020-02-19 07:55] VITALS: BP 119/52
[2020-02-19 08:35] LABS: % SATURATION 8 % (20-39); IRON 19 ug/dL (65-175); TIBC 241 ug/dL (250-450)
[2020-02-19 08:38] LABS: ALBUMIN 2.4 g/dL (3.4-5.0); DIRECT BILIRUBIN 0.2 mg/dL (<0.1-0.2); TOTAL BILIRUBIN 0.8 mg/dL (0.2-1.0); TOTAL PROTEIN 5.1 g/dL (6.4-8.2)
--- NOTE | 2020-02-19 09:32 | NUR ---
SHAHZAD received call from Cary at the [facility] requesting update on pt. SHAHZAD reviewed chart. Referrals have been sent to SNFs for post-acute placement. Will need insurance auth for SNF. Unsure of discharge timeframe. SHAHZAD spoke with Mandy at [facility] to provide update. Pt is currently on the waiting list for a bed at [facility]. Pt to remain on the waiting list at this time. Should pt discharge to a SNF from [facility], [facility] will need to be notified. SHAHZAD is following to assist as needed.
[2020-02-19 10:11] VITALS: BP 126/67; BP 126/68; BP 133/73; BP 135/82
[2020-02-19 11:30] VITALS: BP 116/57
--- NOTE | 2020-02-19 11:58 | NUR ---
Nutrition: pt admitted with aflutter, RVR. Seen for LOS. PMH: HTN, dementia. GI on consult for GIB. EGD showed large gastric ulcer. On protonix, miralax. Eating 50-100% of meals on Soft fiber restricted diet. Refuses supplements, states he likes the meals he receives. Unable to verbalize UBW. Current weight is admit weight. Some lower weights recorded mid admit, ? accuracy. Vision limitations but able to feed self per chart. Currently awaiting transfer to [facility] or SNF. Consider low nutrition risk.
[2020-02-19 14:59] LABS: HEMATOCRIT 25.6 % (42.0-52.0); HEMOGLOBIN 8.5 gm/dL (14.0-18.0)
[2020-02-19 15:32] VITALS: BP 125/48
--- NOTE | 2020-02-19 18:30 | NUR ---
ASSESSMENT CHARTED - PT OFF UNIT FOR 1200 ASSESSMENT. PT NPO FOR TESTING MOST OF THE DAY - ATE WELL FOR SUPPER. 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 NO CO' OF PAIN OR NAUSEA. PT HAD BLOOD TRANSFUSION THIS AM HEAM 6.9 POST TRANSFUSION 8.5. PT CONTINUE TO MUMBLE AND NOT MAKE SENSE MOST OF THE TIME WHILE ATTMEPTING TO TALK. EEG / MRI/ MRA COMPLETED THIS SHIFT. CONSULT TO NUEROLGY AND ONCOLOGY CALLED - SEEN BY NEURO TODAY. MULTIPLE CALLS FROM FAMILY MEMBERS TODAY WANTING THE "TALK TO PATIENT" ATTEMPTED TO EXPLAIN TO FAMILY THAT THE PATIENT CANNOT SPEAK WITH THEM - THEY DID NNOT APPEAR TO UNDERSTAND. SAURABHER IN TO SEE PATIENT AND SPOKE WITH SWS IN REGARDS TO PALN FOR PATIENT. PT APPEARS TO BE RESTING VOMFORTABLY AT THE PRESENT TIME.
[2020-02-19 19:30] VITALS: BP 119/61
[2020-02-20 04:21] VITALS: BP 139/58
[2020-02-20 04:47] LABS: ALBUMIN 2.1 g/dL (3.4-5.0); CALCIUM 7.7 mg/dL (8.5-10.1); PHOSPHORUS 2.4 mg/dL (2.5-4.9); POTASSIUM 3.8 mmol/L (3.5-5.1); TOTAL BILIRUBIN 0.9 mg/dL (0.2-1.0); TOTAL PROTEIN 4.9 g/dL (6.4-8.2)
--- NOTE | 2020-02-20 04:58 | NUR ---
ASSUMED PATIENT CARE AT 1845. VITAL SIGNS STABLE WITH NO COMPLAINTS OF PAIN. PATIENT IS MOSTLY NON VERBAL, BUT CAN ANSWER YES/NO SOMETIMES. NEURO CHECKS Q4 WITH NO DEVIANCE NOTED IN PATIENTS MENTATION OR WORSENING S/S CVA. BREATHING STABLE ON ROOM AIR EVIDENCED BY ASSESSMENTS AND SPOT OXYGENATION CHECKS. MULTIPLE BOUTS OF URINARY INCONTINENCE WITH PATIENT PROVIDED SKIN CARE. CONTINUE PLAN OF CARE.
[2020-02-20 05:10] LABS: HEMATOCRIT 23.4 % (42.0-52.0); MCH 27.9 pg (26.0-34.0); MCHC 34.2 g/dL (28.0-37.0); MCV 81.5 fL (80.0-100.0); PLATELET COUNT 118 thou/uL (150-400); RBC 2.87 mil/uL (4.50-6.00); RDW 16.9 % (10.5-14.5); WBC 8.7 thou/uL (4.0-11.0)
[2020-02-20 06:24] LABS: ABSOLUTE NEUTROPHILS 6.2 thou/uL (1.4-8.2); ANISOCYTOSIS 2+; MICROCYTES 2+; PLATELET ESTIMATE SLIGHTLY DECREASED; TARGET CELLS 2+
[2020-02-20 06:25] LABS: POLYCHROMASIA SLIGHT
[2020-02-20 07:49] VITALS: BP 118/65
[2020-02-20 11:27] VITALS: BP 108/58
[2020-02-20] MEDS ORDERED: IPRAT-ALBUT 0.5-3 ML INH (13:56)
[2020-02-20] MEDS ORDERED: MIRALAX17 GM PO (13:56)
[2020-02-20] MEDS ORDERED: VITAMIN B-1100 M2 PO (13:56)
[2020-02-20 14:19] LABS: HEMATOCRIT 25.6 % (42.0-52.0); HEMOGLOBIN 8.6 gm/dL (14.0-18.0)
[2020-02-20 15:12] VITALS: BP 127/66
--- NOTE | 2020-02-20 15:15 | NUR ---
ASSESSMENT CHARTED. PT ALERT AND ORIENTED X2. VSS. FAMILY UODATED ON PT'S PROGRESS. SEEN BY DR. VALADEZ. ORDERS GIVEN TO DISCHARGE PT TO [facility]. REPORT CALLED IN TO REHAB. FAMILY NOTIFIED. TRANSPORTATION SET UP FOR 1600.
--- NOTE | 2020-02-20 16:42 | NUR ---
cm notified that pt was not sent to [facility] with his belonging. cm education to put name on them and hold on them and cm will check on saturday.
[2020-02-22 21:05] LABS: SYPHILIS AB Non Reactive (Non Reactive)
== END 2020-02-20 16:12 | DRG 177 ==
LOC: ER 21:19 → ICU 23:17 → 2N 23:17 → EROBS 23:17 → 2N 02-13 02:45 → ICU 02-14 11:20 → 2N 02-17 06:39
PROVIDERS: Emergency Medicine; Hospitalist; Internal Medicine; Internal Medicine Gastroenterology; Internal Medicine Pulmonary Disease; Nurse Practitioner; Nurse Practitioner Family; Pediatrics; Psychiatry & Neurology Neuromuscular Medicine; ADMIT Hospitalist; ATTEND Hospitalist
PROC: 5A09357 Assistance with Respiratory Ventilation, Less than 24 Consecutive Hours, Continuous Positive Airway Pressure (ICD-10-PCS; principal; 2020-02-13)
PROC: 30233N1 Transfusion of Nonautologous Red Blood Cells into Peripheral Vein, Percutaneous Approach (ICD-10-PCS; 2020-02-14)
PROC: 0DB68ZX Excision of Stomach, Via Natural or Artificial Opening Endoscopic, Diagnostic (ICD-10-PCS; 2020-02-15)
PROC: 0DB98ZX Excision of Duodenum, Via Natural or Artificial Opening Endoscopic, Diagnostic (ICD-10-PCS; 2020-02-15)
DX: J69.0 Pneumonitis due to inhalation of food and vomit (principal); J96.01 Acute respiratory failure with hypoxia; K25.4 Chronic or unspecified gastric ulcer with hemorrhage; K29.81 Duodenitis with bleeding; K20.91 Esophagitis, unspecified with bleeding; I63.9 Cerebral infarction, unspecified; I47.1 Supraventricular tachycardia; E46 Unspecified protein-calorie malnutrition; N17.9 Acute kidney failure, unspecified; I48.92 Unspecified atrial flutter; I50.20 Unspecified systolic (congestive) heart failure; E87.2 Acidosis; D62 Acute posthemorrhagic anemia; I13.0 Hypertensive heart and chronic kidney disease with heart failure and stage 1 through stage 4 chronic kidney disease, or unspecified chronic kidney disease; F10.10 Alcohol abuse, uncomplicated; Z20.828 Contact with and (suspected) exposure to other viral communicable diseases; E03.9 Hypothyroidism, unspecified; F03.90 Unspecified dementia, unspecified severity, without behavioral disturbance, psychotic disturbance, mood disturbance, and anxiety; F17.210 Nicotine dependence, cigarettes, uncomplicated; E86.0 Dehydration; N18.9 Chronic kidney disease, unspecified; I49.5 Sick sinus syndrome; R74.01 Elevation of levels of liver transaminase levels; I95.9 Hypotension, unspecified; D69.6 Thrombocytopenia, unspecified; I27.20 Pulmonary hypertension, unspecified; Z60.2 Problems related to living alone; B96.81 Helicobacter pylori [H. pylori] as the cause of diseases classified elsewhere; I08.1 Rheumatic disorders of both mitral and tricuspid valves; I48.0 Paroxysmal atrial fibrillation; H54.62 Unqualified visual loss, left eye, normal vision right eye; Z71.41 Alcohol abuse counseling and surveillance of alcoholic; Z68.20 Body mass index [BMI] 20.0-20.9, adult; Z71.6 Tobacco abuse counseling; Z79.899 Other long term (current) drug therapy
CPT/HCPCS: 10078; 10081; 10203; 62110; 62900; 85076